=== PATIENT | male | born 1940 | race Caucasian/White ===

== ENCOUNTER 2017-01-15 13:54 | Outpatient (CLI) | payer MEDICARE, OTHER | END 2017-01-15 13:55 | disposition home or self-care (01) | DX: E78.00 Pure hypercholesterolemia, unspecified (principal); C61 Malignant neoplasm of prostate; N40.1 Benign prostatic hyperplasia with lower urinary tract symptoms ==

== ENCOUNTER 2017-01-30 09:57 | Outpatient (CLI) | payer MEDICARE, OTHER | END 2017-01-30 09:58 | disposition home or self-care (01) | DX: E78.2 Mixed hyperlipidemia (principal) ==

== ENCOUNTER 2017-03-07 10:28 | Outpatient (CLI) | payer MEDICARE, OTHER | END 2017-03-07 10:29 | disposition home or self-care (01) | DX: M81.0 Age-related osteoporosis without current pathological fracture (principal) ==

== ENCOUNTER 2017-06-06 15:15 | Outpatient (CLI) | payer MEDICARE, OTHER ==
[2017-06-06 19:04] LABS: CHOL/HDL RATIO 5.6 (<5.0); CHOLESTEROL 225 mg/dL; HDL CHOLESTEROL 40 mg/dL; LDL/HDL RATIO 3.3 (<3.6); TRIGLYCERIDES 274 mg/dL; VLDL CHOLESTEROL 55 mg/dL
== END 2017-06-06 15:16 | disposition home or self-care (01) ==
LOC: LAB.F 15:15
PROVIDERS: ATTEND Internal Medicine
DX: E78.2 Mixed hyperlipidemia (principal)
CPT/HCPCS: 36415; 80061

== ENCOUNTER 2018-01-13 08:00 | Outpatient (CLI) | payer MEDICARE, OTHER ==
[2018-01-13 18:32] LABS: BASOPHILS # (AUTO) 0.1 10^3/uL (0.0-0.1); EOSINOPHILS # (AUTO) 0.1 10^3/uL (0.0-0.7); EOSINOPHILS % (AUTO) 1.6 %; HGB - HEMOGLOBIN 13.6 g/dL (14.0-18.0); LYMPHOCYTES % (AUTO) 18.7 %; MEAN CORPUSCULAR HEMOGLOBIN 30.1 pg (27.0-31.0); MEAN CORPUSCULAR HGB CONC 33.5 g/dL (32.0-36.0); MEAN PLATELET VOLUME 8.3 fL (7.4-11.4); MONOCYTES # (AUTO) 0.5 10^3/uL (0.0-1.0); MONOCYTES % (AUTO) 9.1 %; NEUTROPHILS # (AUTO) 3.7 10^3/uL (1.5-6.6); NEUTROPHILS % (AUTO) 69.6 %; PLT - PLATELET COUNT 217 10^3/uL (130-450); RED BLOOD COUNT 4.52 10^6/uL (4.70-6.10); RED CELL DISTRIBUTION WIDTH 13.7 % (12.0-15.0); WHITE BLOOD COUNT 5.3 x10^3/uL (4.8-10.8)
[2018-01-13 18:48] LABS: ALBUMIN 4.2 g/dL (3.2-5.5); ALBUMIN/GLOBULIN RATIO 1.5 (1.0-2.2); ALKALINE PHOSPHATASE 57 IU/L (42-121); ALT ALANINE AMINOTRANSFERASE 16 IU/L (10-60); AST ASPARTATE AMINOTRANSFERASE 17 IU/L (10-42); BILIRUBIN,TOTAL 0.7 mg/dL (0.2-1.0); BUN - BLOOD UREA NITROGEN 21 mg/dL (6-20); CALCIUM 9.2 mg/dL (8.5-10.3); CARBON DIOXIDE - CO2 28 mmol/L (21-32); CHLORIDE 101 mmol/L (101-111); CREATININE 1.1 mg/dL (0.6-1.2); GFR - MDRD 65 (>89); GLUCOSE 104 mg/dL (70-100); MAGNESIUM 2.2 mg/dL (1.7-2.8); SODIUM 138 mmol/L (135-145)
== END 2018-01-13 08:01 | disposition home or self-care (01) ==
LOC: LAB.F 08:00
PROVIDERS: ATTEND Physician Assistant Medical
DX: I49.9 Cardiac arrhythmia, unspecified (principal); C61 Malignant neoplasm of prostate; Z12.5 Encounter for screening for malignant neoplasm of prostate; K30 Functional dyspepsia
CPT/HCPCS: 36415; 80053; 83735; 84443; 85025; G0103; 84153